=== PATIENT | male | born 1960 | race Caucasian/White ===

== ENCOUNTER 2023-05-24 00:05 | Emergency (ER) | payer OTHER ==
[~2023-05-24] VITALS: Ht 165.1 cm; Wt 82.0 kg
[2023-05-24] MEDS ORDERED: DORZ10DR10 OU (00:18)
[2023-05-24] MEDS ORDERED: XALA2.5OS OU (00:18)
[2023-05-24] MEDS ORDERED: FLUORESCEIN SODIUM 1 MG STRIP ONE (00:24)
[2023-05-24] MEDS ORDERED: PROPARACAINE HCL 0.5% 15 ML OPHTHALMIC SOLUTION OS ONE (00:30)
[2023-05-24] MEDS ORDERED: TOBRAMYCIN/DEXAMETHASONE 5 ML OPHTHALMIC SUSPENSION OS ONE (01:00)
[2023-05-24] MEDS ORDERED: HYDROCODONE/ACETAMINOPHEN 5-325 MG TABLET PO ONE (01:00)
[2023-05-24 01:37] VITALS: BP 149/92; PULSE 79; RESP 18; TEMP 98.3
== END 2023-05-24 01:40 | disposition home or self-care (01) ==
LOC: EMS 00:07
DX: H10.89 Other conjunctivitis (principal); E78.00 Pure hypercholesterolemia, unspecified; I10 Essential (primary) hypertension; Z88.0 Allergy status to penicillin
CPT/HCPCS: 99284; J9035; Z7502; Z7610

== ENCOUNTER 2024-10-12 22:05 | Emergency (ER) | payer BC, OTHER ==
[~2024-10-12] VITALS: Ht 165.1 cm; Wt 89.8 kg
[~2024-10-12 22:05] MED LIST: DORZ10DR10 OU; XALA2.5OS OU
[2024-10-12 22:44] VITALS: TEMP 97.7
[2024-10-13] MEDS: ACETAMINOPHEN 325 MG TABLET PO ONE (02:37)
[2024-10-13] MEDS: IBUPROFEN 400 MG TABLET PO ONE (02:37)
[2024-10-13 02:39] VITALS: BP 173/92; PULSE 78; RESP 16; O2SAT 99
== END 2024-10-13 04:40 | disposition home or self-care (01) ==
LOC: EMS 22:05
DX: S20.219A Contusion of unspecified front wall of thorax, initial encounter (principal); R10.9 Unspecified abdominal pain; I10 Essential (primary) hypertension; E78.00 Pure hypercholesterolemia, unspecified; Z88.0 Allergy status to penicillin; Y04.8XXA Assault by other bodily force, initial encounter; Y93.89 Activity, other specified; Y92.89 Other specified places as the place of occurrence of the external cause; Y99.8 Other external cause status
CPT/HCPCS: 71045; 99283

== ENCOUNTER 2024-10-16 17:35 | Emergency (ER) | payer OTHER ==
[~2024-10-16] VITALS: Ht 162.6 cm; Wt 87.7 kg
[2024-10-16] MEDS ORDERED: AMLO-258 PO (17:42)
[2024-10-16 18:06] LABS: BASOPHILS % (AUTO) 0.8 % (0.0-2.0); EOSINOPHILS % (AUTO) 3.2 % (1.0-6.0); HEMATOCRIT 41.2 % (41-53); HEMOGLOBIN 13.9 g/dL (13.5-17.5); LYMPHOCYTES # (AUTO) 1.8 K/uL (1.0-4.8); LYMPHOCYTES % (AUTO) 28.6 % (22.0-44.0); MEAN CORPUSCULAR HEMOGLOBIN 28.4 pg (26.0-34.0); MEAN CORPUSCULAR HGB CONC 33.8 G/dL (31.0-37.0); MEAN CORPUSCULAR VOLUME 84 fL (80-100); MONOCYTES # (AUTO) 0.5 K/uL (0.1-1.0); MONOCYTES % (AUTO) 8.4 % (2.0-9.0); NEUTROPHILS # (AUTO) 3.7 K/uL (1.8-7.7); PLATELET COUNT (AUTO) 247 K/uL (150-450); RED CELL DISTRIBUTION WIDTH 13.7 % (11.5-14.5); WHITE BLOOD COUNT (AUTO) 6.3 K/uL (4.5-11.0)
[2024-10-16 18:12] LABS: ANION GAP 10 mmol/L (8-16); CALCIUM, TOTAL 8.9 mg/dL (8.8-10.5); CARBON DIOXIDE 29 mmol/L (22-29); CHLORIDE 105 mmol/L (98-107); CREATININE 0.89 mg/dL (0.60-1.30); GLOMERULAR FILTR. RATE CALC > 60 mL/min (>60); GLUCOSE,RANDOM 91 mg/dL (70-110); POTASSIUM 3.7 mmol/L (3.5-5.1); SODIUM SERUM 144 mmol/L (136-145); UREA NITROGEN, BLOOD 22 mg/dL (7-18)
[2024-10-16 18:22] LABS: LIPASE 70 U/L (16-77); TROPONIN I-HIGH SENSITIVITY 8 ng/L (<76)
[2024-10-16 19:22] VITALS: BP 157/99; PULSE 65; RESP 18; TEMP 98.5; O2SAT 98
[2024-10-16] MEDS ORDERED: POLY119P3 PO (21:56)
[2024-10-16] MEDS ORDERED: HYDR30CR3 TP (21:56)
[2024-10-16] MEDS ORDERED: OMEP-148 PO (21:56)
[2024-10-16] MEDS ORDERED: ACET-66 PO (21:56)
== END 2024-10-16 22:11 | disposition home or self-care (01) ==
LOC: EMS 17:35
DX: S20.212A Contusion of left front wall of thorax, initial encounter (principal); K64.9 Unspecified hemorrhoids; K59.00 Constipation, unspecified; I10 Essential (primary) hypertension; E78.00 Pure hypercholesterolemia, unspecified; Z88.0 Allergy status to penicillin; Z79.899 Other long term (current) drug therapy; X58.XXXA Exposure to other specified factors, initial encounter; Y93.89 Activity, other specified; Y92.89 Other specified places as the place of occurrence of the external cause; Y99.8 Other external cause status
CPT/HCPCS: 71045; 74176; 80048; 82271; 83690; 84484; 85025; 93005; 99285; 36415-L1; 36415-TC

== ENCOUNTER 2025-03-07 16:52 | Emergency (ER) | payer OTHER ==
[~2025-03-07] VITALS: Ht 162.6 cm; Wt 68.2 kg
[~2025-03-07 16:52] MED LIST changes: +ACET-66 PO; +AMLO-258 PO; +HYDR30CR3 TP; +OMEP-148 PO; +POLY119P3 PO
[2025-03-07] MEDS ORDERED: TRIA15CR58 TP (17:02)
[2025-03-07] MEDS ORDERED: HYDR30CR39 TP (17:02)
[2025-03-07] MEDS ORDERED: MICO57CR2 TP (19:03)
[2025-03-07] MEDS ORDERED: IBUP-1554 PO (19:03)
[2025-03-07 19:20] VITALS: BP 141/73; PULSE 74; RESP 18; TEMP 97.3; O2SAT 97
[2025-03-07] MEDS: IBUPROFEN 600 MG TABLET PO ONE (19:45)
[2025-03-07] MEDS: ACETAMINOPHEN 500 MG TABLET PO ONE (19:45)
== END 2025-03-07 19:59 | disposition home or self-care (01) ==
LOC: EMS 16:56
DX: B35.9 Dermatophytosis, unspecified (principal); I10 Essential (primary) hypertension; E78.00 Pure hypercholesterolemia, unspecified; Z98.890 Other specified postprocedural states; Z88.0 Allergy status to penicillin; Z79.899 Other long term (current) drug therapy
CPT/HCPCS: 99283